=== PATIENT | male | born 1950 | race Caucasian/White ===

== ENCOUNTER 2020-04-12 23:44 | Inpatient (IN) ==
[2020-04-13] MEDS ORDERED: DEXTROSE 50% 25 GM/50 ML VIAL IV PRN (01:48)
[2020-04-13] MEDS ORDERED: GLUCAGON 1 MG VIAL IM PRN (01:48)
[2020-04-13 03:55] LABS: Hematocrit 31.1 VOL% (42.0-52.0); Hemoglobin 9.5 GM/DL (14.0-18.0); Immature Granulocytes % 0.7 %; Immature Granulocytes Absolute 0.05 #; Lymphocytes # 0.3 10*3/uL (1.4-4.0); Lymphocytes % 4.9 % (21.2-54.2); Mean Corpuscular HGB Conc 30.5 GM/DL (32-36); Mean Corpuscular Volume 85.4 FL (87-102); Neutrophils % 88.4 % (38.7-73.9); Platelet Count 94 T/CUMM (130-400); Red Blood Count 3.64 MC/CUMM (3.8-5.5); White Blood Count 6.8 T/CUMM (4-12)
[2020-04-13] MEDS ORDERED: SODIUM CHLORIDE 0.9% 1,000 ML IV SCH (04:00)
[2020-04-13 04:10] LABS: Alanine Aminotransferase < 6 U/L (16-61); Albumin 2.6 G/DL (3.4-5.0); Alkaline Phosphatase 75 U/L (45-117); Aspartate Amino Transferase 5 U/L (0-37); Blood Urea Nitrogen 40 MG/DL (7-18); Calcium 8.4 MG/DL (8.5-10.1); Estimated Glom Filtration Rate 29 ML/MIN; Glucose 157 MG/DL (74-106); Osmolality,Calculated 282.1 MOS/KG (273-304); Total Protein 6.6 G/DL (6.4-8.3)
[2020-04-13] MEDS: PIPERACILLIN/TAZOBACTAM 3,375 MG in SODIUM CHLORIDE 0.9% 100 ML IV SCH ×2 (04:10→15:38)
[2020-04-13 04:21] LABS: Band Neutrophils 1 % (0-10); Lymphocytes 7 % (20-55); Segmented Neutrophils 88 % (50-85); Total Cells Counted 100
[2020-04-13 04:22] LABS: Anisocytosis 1+; Platelet Estimate Decreased
[2020-04-13 04:28] LABS: Ferritin 74.3 ng/ml (26-388)
[2020-04-13] MEDS ORDERED: VANCOMYCIN INJ 2,000 MG in SODIUM CHLORIDE 0.9% 500 ML IV PRN (05:16)
[2020-04-13 06:15] LABS: Apearance,Urine CLOUDY (Clear); Bilirubin,Urine Negative (Negative); Blood, Urine Moderate mg/dL (Negative); Glucose,Urine (UA) Negative (Negative); Ketones,Urine 5 mg/dL (Negative); Nitrite,Urine Negative (Negative); Protein,Urine 100 MG/DL; RBC,Urine 15 /HPF (0-4); Squamous Epithelial Cell,Urine Occasional /HPF (0-10); Urine Color Yellow (Yellow); Urine Specific Gravity 1.014 (1.001-1.035); Urine Urobilinogen < 2.0 EU/DL (0.2-1.0); WBC,Urine 30 /HPF (0-6)
[2020-04-13] MEDS ORDERED: MEPERIDINE 25 MG/1 ML VIAL IV PRN (06:33)
[2020-04-13] MEDS ORDERED: PROMETHAZINE INJ 25 MG in SODIUM CHLORIDE 0.9% 50 ML IV PRN (06:33)
[2020-04-13] MEDS ORDERED: ONDANSETRON 4 MG/2 ML VIAL IV PRN (06:33)
[2020-04-13] MEDS ORDERED: diphenhydrAMINE 50 MG/1 ML VIAL IV PRN (06:33)
[2020-04-13] MEDS ORDERED: ALBUMIN 25% 25 GM/100 ML VIAL IV ONE (07:24)
[2020-04-13] MEDS ORDERED: ALBUTEROL/IPRATROPIUM 3 ML NEB RESP TX PRN (08:41)
[2020-04-13 08:52] LABS: Amorphous Crystals,Urine Moderate /HPF (Few); Apearance,Urine CLOUDY (Clear); Bilirubin,Urine Negative (Negative); Blood, Urine Small mg/dL (Negative); Glucose,Urine (UA) Negative (Negative); Ketones,Urine 5 mg/dL (Negative); Nitrite,Urine Negative (Negative); Protein,Urine 100 MG/DL; Urine Color Amber (Yellow); Urine Specific Gravity 1.017 (1.001-1.035); Urine Urobilinogen < 2.0 EU/DL (0.2-1.0)
[2020-04-13] MEDS ORDERED: VANCOMYCIN INJ 2,500 MG in SODIUM CHLORIDE 0.9% 500 ML IV ONE (09:00)
[2020-04-13] MEDS ORDERED: PANTOPRAZOLE 40 MG TABLET PO SCH (09:00)
[2020-04-13 09:23] LABS: ABG Base Excess -7.6 MMOL/L (-2.5-2.5); ABG Oxygen Saturation 78.3 % (95-100); ABG PCO2 64.8 MM HG (35-48); ABG PO2 58.3 MM HG (80-95); ABG TCO2 21.2 MMOL/L (23-27); Allen Test Positive; Pt O2 Delivery Device Ventilator
[2020-04-13 09:24] LABS: ABG PH 7.144 (7.35-7.45)
[2020-04-13] MEDS: INSULIN LISPRO 100 UNIT/ML SUBCUT SCH ×2 (09:34→17:39)
[2020-04-13] MEDS: ASPIRIN 325 MG TABLET PO SCH (09:35)
[2020-04-13] MEDS: CLOPIDOGREL 75 MG TABLET PO SCH (09:36)
[2020-04-13] MEDS: gemfibroziL 600 MG TABLET PO SCH ×2 (09:36→21:27)
[2020-04-13] MEDS: SODIUM BICARB INJ 100 MEQ in SODIUM CHLORIDE 0.45% 1,000 ML IV SCH (10:14)
[2020-04-13 10:34] LABS: ABG Base Excess -8.2 MMOL/L (-2.5-2.5); ABG HCO3 17.7 MMOL/L (20-26); ABG Oxygen Saturation 95.5 % (95-100); ABG PCO2 64.1 MM HG (35-48); ABG TCO2 20.6 MMOL/L (23-27)
[2020-04-13] MEDS: ACETAMINOPHEN 325 MG TABLET PO PRN (10:34)
[2020-04-13 10:36] LABS: ABG PH 7.137 (7.35-7.45)
[2020-04-13] MEDS ORDERED: SODIUM BICARBONATE 50 MEQ/50 ML VIAL IV ONE ×2 (10:38→10:40)
[2020-04-13] MEDS ORDERED: LIDOCAINE 2% 5 ML VIAL ONE (11:37)
[2020-04-13] MEDS ORDERED: MIDAZOLAM 2 MG/2 ML VIAL ONE (11:37)
[2020-04-13] MEDS ORDERED: CALCIUM CHLORIDE 1,000 MG/10 ML VIAL IV ONE (11:37)
[2020-04-13] MEDS ORDERED: SEVOFLURANE 1 UNIT/15 MINUTE INH ONE (11:37)
[2020-04-13] MEDS ORDERED: fentaNYL 100 MCG/2 ML VIAL ONE (11:38)
[2020-04-13] MEDS ORDERED: SODIUM CHLORIDE 0.9% 250 ML IV ONE (11:38)
[2020-04-13] MEDS ORDERED: EPINEPHrine 1 MG/ML VIAL ONE (11:38)
[2020-04-13] MEDS ORDERED: MIDAZOLAM 10 MG/2 ML VIAL ONE (11:38)
[2020-04-13] MEDS ORDERED: ETOMIDATE 40 MG/20 ML VIAL IV ONE (11:38)
[2020-04-13] MEDS ORDERED: SUCCINYLCHOLINE 200 MG/10 ML VIAL ONE (11:38)
[2020-04-13] MEDS ORDERED: ROCURONIUM 100 MG/10 ML VIAL IV ONE (11:38)
[2020-04-13] MEDS ORDERED: SODIUM CHLORIDE 0.9% 1,000 ML IV ONE ×2 (11:39→13:13)
[2020-04-13] MEDS: MIDAZOLAM 100 MG in SODIUM CHLORIDE 0.9% 80 ML IV PRN (11:57)
[2020-04-13] MEDS ORDERED: NOREPINEPHRINE 4 MG/4 ML VIAL IV ONE (12:35)
[2020-04-13] MEDS: NOREPINEPHRINE 8 MG in SODIUM CHLORIDE 0.9% 242 ML IV PRN ×3 (13:13→22:49)
[2020-04-13 15:19] LABS: ABG Base Excess -5.8 MMOL/L (-2.5-2.5); ABG HCO3 19.7 MMOL/L (20-26); ABG PCO2 51.7 MM HG (35-48); ABG PH 7.234 (7.35-7.45); ABG TCO2 20.6 MMOL/L (23-27)
[2020-04-13] MEDS ORDERED: ALBUMIN 5% 12.5 GM/250 ML VIAL IV ONE (16:52)
[2020-04-13] MEDS ORDERED: ALBUMIN 5% 12.5 GM in PREMIX 1 EACH IV ONE (16:52)
[2020-04-13 17:29] LABS: Alanine Aminotransferase < 9 U/L (16-61); Albumin 2.5 G/DL (3.4-5.0); Alkaline Phosphatase 67 U/L (45-117); Aspartate Amino Transferase 5 U/L (0-37); Blood Urea Nitrogen 42 MG/DL (7-18); Estimated Glom Filtration Rate 25 ML/MIN; Glucose 212 MG/DL (74-106); Osmolality,Calculated 289.8 MOS/KG (273-304); Total Protein 6.1 G/DL (6.4-8.3)
[2020-04-13] MEDS: ENOXAPARIN 30 MG/0.3 ML SYRINGE SUBCUT SCH (17:39)
[2020-04-13 18:15] LABS: ABG Base Excess -4.3 MMOL/L (-2.5-2.5); ABG HCO3 20.9 MMOL/L (20-26); ABG PH 7.319 (7.35-7.45); ABG TCO2 20.2 MMOL/L (23-27)
[2020-04-13] MEDS: PANTOPRAZOLE 40 MG VIAL IV SCH (21:26)
[2020-04-14] MEDS: SODIUM BICARB INJ 100 MEQ in SODIUM CHLORIDE 0.45% 1,000 ML IV SCH ×3 (00:14→23:54)
[2020-04-14] MEDS: NOREPINEPHRINE 8 MG in SODIUM CHLORIDE 0.9% 242 ML IV PRN ×3 (03:22→22:34)
[2020-04-14 04:12] LABS: ABG Base Excess -3.2 MMOL/L (-2.5-2.5); ABG HCO3 21.8 MMOL/L (20-26); ABG Oxygen Saturation 99.3 % (95-100); ABG PH 7.331 (7.35-7.45); ABG TCO2 20.3 MMOL/L (23-27)
[2020-04-14 04:23] LABS: Basophils % 0.2 % (0.0-0.8); Eosinophils % 0.2 % (0.00-10.9); Hematocrit 25.5 VOL% (42.0-52.0); Hemoglobin 7.9 GM/DL (14.0-18.0); Immature Granulocytes % 1.2 %; Immature Granulocytes Absolute 0.07 #; Lymphocytes # 0.6 10*3/uL (1.4-4.0); Lymphocytes % 10.2 % (21.2-54.2); Mean Corpuscular Volume 85.3 FL (87-102); Mean Platelet Volume 11.9 FL (9.6-12.0); Monocytes % 8.1 % (1.7-12.7); Neutrophils % 80.1 % (38.7-73.9); Platelet Count 114 T/CUMM (130-400); Red Blood Count 2.99 MC/CUMM (3.8-5.5); Red Cell Distribution Width 16.8 % (9.3-17.3); White Blood Count 5.9 T/CUMM (4-12)
[2020-04-14] MEDS: PIPERACILLIN/TAZOBACTAM 3,375 MG in SODIUM CHLORIDE 0.9% 100 ML IV SCH ×2 (04:30→14:06)
[2020-04-14 04:40] LABS: Alanine Aminotransferase < 9 U/L (16-61); Albumin 2.4 G/DL (3.4-5.0); Alkaline Phosphatase 58 U/L (45-117); Aspartate Amino Transferase 6 U/L (0-37); Blood Urea Nitrogen 44 MG/DL (7-18); Calcium 7.9 MG/DL (8.5-10.1); Estimated Glom Filtration Rate 23 ML/MIN; Glucose 153 MG/DL (74-106); Osmolality,Calculated 290.5 MOS/KG (273-304); Total Protein 5.8 G/DL (6.4-8.3)
[2020-04-14] MEDS: ENOXAPARIN 30 MG/0.3 ML SYRINGE SUBCUT SCH ×2 (06:20→17:15)
[2020-04-14] MEDS: MIDAZOLAM 100 MG in SODIUM CHLORIDE 0.9% 80 ML IV PRN ×2 (08:45→21:54)
[2020-04-14] MEDS: INSULIN LISPRO 100 UNIT/ML SUBCUT SCH ×4 (08:52→23:09)
[2020-04-14] MEDS: MORPHINE 4 MG/1 ML VIAL IV PRN ×2 (08:56→12:36)
[2020-04-14] MEDS: gemfibroziL 600 MG TABLET PO SCH ×2 (09:57→20:42)
[2020-04-14] MEDS: ASPIRIN 325 MG TABLET PO SCH (09:57)
[2020-04-14] MEDS: CLOPIDOGREL 75 MG TABLET PO SCH (09:57)
[2020-04-14] MEDS: PANTOPRAZOLE 40 MG VIAL IV SCH ×2 (09:57→20:42)
[2020-04-14] MEDS ORDERED: VANCOMYCIN INJ 2,500 MG in SODIUM CHLORIDE 0.9% 500 ML IV ONE (10:00)
[2020-04-14 11:29] LABS: ABG Base Excess -0.9 MMOL/L (-2.5-2.5); ABG HCO3 23.7 MMOL/L (20-26); ABG Oxygen Saturation 98.9 % (95-100); ABG PCO2 38.8 MM HG (35-48); ABG PH 7.396 (7.35-7.45); ABG TCO2 22.5 MMOL/L (23-27)
[2020-04-14] MEDS: fentaNYL INJ 1,250 MCG in SODIUM CHLORIDE 0.9% 225 ML IV PRN ×2 (13:15→22:05)
[2020-04-15 03:42] LABS: ABG Base Excess -3.1 MMOL/L (-2.5-2.5); ABG HCO3 21.8 MMOL/L (20-26); ABG Oxygen Saturation 98.7 % (95-100); ABG PCO2 39.8 MM HG (35-48); ABG PH 7.353 (7.35-7.45); ABG TCO2 20.9 MMOL/L (23-27)
[2020-04-15] MEDS: PIPERACILLIN/TAZOBACTAM 3,375 MG in SODIUM CHLORIDE 0.9% 100 ML IV SCH ×2 (03:45→15:09)
[2020-04-15 03:49] LABS: Basophils % 0.4 % (0.0-0.8); Eosinophils # 0.1 10*3/uL (0.0-0.87); Eosinophils % 1.1 % (0.00-10.9); Hematocrit 24.6 VOL% (42.0-52.0); Hemoglobin 7.3 GM/DL (14.0-18.0); Immature Granulocytes % 0.7 %; Immature Granulocytes Absolute 0.04 #; Lymphocytes # 0.6 10*3/uL (1.4-4.0); Lymphocytes % 11.4 % (21.2-54.2); Mean Corpuscular HGB Conc 29.7 GM/DL (32-36); Mean Corpuscular Volume 87.9 FL (87-102); Mean Platelet Volume 11.2 FL (9.6-12.0); Neutrophils % 78.4 % (38.7-73.9); Platelet Count 137 T/CUMM (130-400); Red Cell Distribution Width 17.2 % (9.3-17.3); White Blood Count 5.6 T/CUMM (4-12)
[2020-04-15 04:10] LABS: Alanine Aminotransferase < 9 U/L (16-61); Alkaline Phosphatase 54 U/L (45-117); Aspartate Amino Transferase 8 U/L (0-37); Blood Urea Nitrogen 43 MG/DL (7-18); Calcium 7.9 MG/DL (8.5-10.1); Estimated Glom Filtration Rate 21 ML/MIN; Glucose 104 MG/DL (74-106); Total Protein 5.5 G/DL (6.4-8.3)
[2020-04-15] MEDS: SODIUM BICARB INJ 100 MEQ in SODIUM CHLORIDE 0.45% 1,000 ML IV SCH ×3 (05:28→22:25)
[2020-04-15] MEDS: INSULIN LISPRO 100 UNIT/ML SUBCUT SCH ×4 (05:30→23:27)
[2020-04-15] MEDS: ENOXAPARIN 30 MG/0.3 ML SYRINGE SUBCUT SCH (05:41)
[2020-04-15] MEDS: fentaNYL INJ 1,250 MCG in SODIUM CHLORIDE 0.9% 225 ML IV PRN ×2 (07:11→16:00)
[2020-04-15] MEDS: NOREPINEPHRINE 8 MG in SODIUM CHLORIDE 0.9% 242 ML IV PRN (07:58)
[2020-04-15] MEDS: gemfibroziL 600 MG TABLET PO SCH ×4 (08:48→21:12)
[2020-04-15] MEDS: PANTOPRAZOLE 40 MG VIAL IV SCH ×3 (08:48→21:12)
[2020-04-15] MEDS: CLOPIDOGREL 75 MG TABLET PO SCH ×3 (08:48→13:32)
[2020-04-15] MEDS: ASPIRIN 325 MG TABLET PO SCH ×3 (08:48→13:34)
[2020-04-15] MEDS ORDERED: VANCOMYCIN INJ 2,000 MG in SODIUM CHLORIDE 0.9% 500 ML IV ONE (12:30)
[2020-04-15] MEDS: MIDAZOLAM 100 MG in SODIUM CHLORIDE 0.9% 80 ML IV PRN (17:03)
[2020-04-16] MEDS: NOREPINEPHRINE 8 MG in SODIUM CHLORIDE 0.9% 242 ML IV PRN
[2020-04-16] MEDS: PIPERACILLIN/TAZOBACTAM 3,375 MG in SODIUM CHLORIDE 0.9% 100 ML IV SCH ×3 (02:29→16:32)
[2020-04-16 03:41] LABS: ABG Base Excess 1.2 MMOL/L (-2.5-2.5); ABG HCO3 25.4 MMOL/L (20-26); ABG Oxygen Saturation 97.7 % (95-100); ABG PCO2 46.1 MM HG (35-48); ABG PH 7.375 (7.35-7.45); ABG TCO2 23.2 MMOL/L (23-27)
[2020-04-16 03:45] LABS: Basophils % 0.2 % (0.0-0.8); Eosinophils # 0.1 10*3/uL (0.0-0.87); Eosinophils % 2.5 % (0.00-10.9); Hemoglobin 6.7 GM/DL (14.0-18.0); Immature Granulocytes Absolute 0.04 #; Lymphocytes # 0.5 10*3/uL (1.4-4.0); Mean Corpuscular HGB Conc 30.5 GM/DL (32-36); Mean Corpuscular Volume 86.6 FL (87-102); Mean Platelet Volume 11.3 FL (9.6-12.0); Monocytes % 7.4 % (1.7-12.7); Neutrophils % 75.9 % (38.7-73.9); Platelet Count 115 T/CUMM (130-400); Red Blood Count 2.54 MC/CUMM (3.8-5.5); Red Cell Distribution Width 17.3 % (9.3-17.3); White Blood Count 4.1 T/CUMM (4-12)
[2020-04-16 04:07] LABS: Alanine Aminotransferase < 9 U/L (16-61); Albumin 1.6 G/DL (3.4-5.0); Alkaline Phosphatase 53 U/L (45-117); Aspartate Amino Transferase 10 U/L (0-37); Blood Urea Nitrogen 41 MG/DL (7-18); Calcium 7.9 MG/DL (8.5-10.1); Estimated Glom Filtration Rate 22 ML/MIN; Glucose 149 MG/DL (74-106); Osmolality,Calculated 298.8 MOS/KG (273-304); Total Protein 5.4 G/DL (6.4-8.3)
[2020-04-16] MEDS: INSULIN LISPRO 100 UNIT/ML SUBCUT SCH ×3 (06:06→18:31)
[2020-04-16] MEDS: ENOXAPARIN 30 MG/0.3 ML SYRINGE SUBCUT SCH (06:07)
[2020-04-16] MEDS: CLOPIDOGREL 75 MG TABLET PO SCH (09:04)
[2020-04-16] MEDS: gemfibroziL 600 MG TABLET PO SCH ×2 (09:04→21:29)
[2020-04-16] MEDS: ASPIRIN 325 MG TABLET PO SCH (09:04)
[2020-04-16] MEDS: PANTOPRAZOLE 40 MG VIAL IV SCH ×2 (09:04→21:29)
[2020-04-16] MEDS: SODIUM BICARB INJ 100 MEQ in SODIUM CHLORIDE 0.45% 1,000 ML IV SCH (09:16)
[2020-04-16] MEDS: SODIUM CHLORIDE 0.45% 1,000 ML IV SCH (12:21)
[2020-04-16] MEDS: MIDAZOLAM 100 MG in SODIUM CHLORIDE 0.9% 80 ML IV PRN (14:03)
[2020-04-16] MEDS: fentaNYL INJ 1,250 MCG in SODIUM CHLORIDE 0.9% 225 ML IV PRN (19:56)
[2020-04-17] MEDS: INSULIN LISPRO 100 UNIT/ML SUBCUT SCH ×5 (01:35→23:44)
[2020-04-17] MEDS: PIPERACILLIN/TAZOBACTAM 3,375 MG in SODIUM CHLORIDE 0.9% 100 ML IV SCH ×2 (02:52→15:36)
[2020-04-17 03:25] LABS: ABG Base Excess 4.5 MMOL/L (-2.5-2.5); ABG HCO3 28.5 MMOL/L (20-26); ABG Oxygen Saturation 98.8 % (95-100); ABG PCO2 44.5 MM HG (35-48); ABG PH 7.428 (7.35-7.45); ABG TCO2 27.1 MMOL/L (23-27)
[2020-04-17 03:29] LABS: Basophils % 0.6 % (0.0-0.8); Eosinophils # 0.1 10*3/uL (0.0-0.87); Eosinophils % 3.2 % (0.00-10.9); Hematocrit 21.2 VOL% (42.0-52.0); Immature Granulocytes % 1.4 %; Immature Granulocytes Absolute 0.05 #; Lymphocytes # 0.5 10*3/uL (1.4-4.0); Lymphocytes % 14.9 % (21.2-54.2); Mean Corpuscular HGB Conc 30.2 GM/DL (32-36); Mean Corpuscular Volume 87.2 FL (87-102); Monocytes % 8.3 % (1.7-12.7); Neutrophils % 71.6 % (38.7-73.9); Platelet Count 117 T/CUMM (130-400); Red Blood Count 2.43 MC/CUMM (3.8-5.5); Red Cell Distribution Width 17.2 % (9.3-17.3); White Blood Count 3.5 T/CUMM (4-12)
[2020-04-17 03:32] LABS: Hemoglobin 6.4 GM/DL (14.0-18.0)
[2020-04-17 03:37] LABS: Calcium 7.8 MG/DL (8.5-10.1); Osmolality,Calculated 304.6 MOS/KG (273-304)
[2020-04-17] MEDS ORDERED: SODIUM CHLORIDE 0.9% 1,000 ML IV PRN (03:52)
[2020-04-17 04:28] LABS: INR 1.1; PT Patient Result 11.6 SECS (9.8-11.9); Partial Thromboplastin Time 31.9 SECS (23.9-33.8)
[2020-04-17] MEDS: ENOXAPARIN 30 MG/0.3 ML SYRINGE SUBCUT SCH (05:43)
[2020-04-17] MEDS: fentaNYL INJ 1,250 MCG in SODIUM CHLORIDE 0.9% 225 ML IV PRN (07:46)
[2020-04-17] MEDS: PANTOPRAZOLE 40 MG VIAL IV SCH ×2 (09:32→21:58)
[2020-04-17] MEDS: ASPIRIN 325 MG TABLET PO SCH (09:32)
[2020-04-17] MEDS: CLOPIDOGREL 75 MG TABLET PO SCH (09:33)
[2020-04-17] MEDS: gemfibroziL 600 MG TABLET PO SCH ×2 (09:33→21:58)
[2020-04-17] MEDS ORDERED: NOREPINEPHRINE 8 MG in DEXTROSE 5% 242 ML IV PRN (16:00)
[2020-04-17] MEDS: fentaNYL INJ 1,250 MCG in DEXTROSE 5% 225 ML IV PRN (18:24)
[2020-04-17] MEDS: MIDAZOLAM 100 MG in DEXTROSE 5% 80 ML IV PRN (18:33)
[2020-04-18] MEDS: PIPERACILLIN/TAZOBACTAM 3,375 MG in DEXTROSE 5% 100 ML IV SCH ×2 (03:26→15:23)
[2020-04-18] MEDS: fentaNYL INJ 1,250 MCG in DEXTROSE 5% 225 ML IV PRN ×2 (03:27→12:40)
[2020-04-18 05:08] LABS: ABG Base Excess 3.5 MMOL/L (-2.5-2.5); ABG HCO3 27.6 MMOL/L (20-26); ABG Oxygen Saturation 98.6 % (95-100); ABG PCO2 44.5 MM HG (35-48); ABG PH 7.414 (7.35-7.45); ABG TCO2 26.6 MMOL/L (23-27)
[2020-04-18 05:17] LABS: Basophils % 0.4 % (0.0-0.8); Eosinophils # 0.2 10*3/uL (0.0-0.87); Eosinophils % 3.5 % (0.00-10.9); Hematocrit 25.6 VOL% (42.0-52.0); Hemoglobin 7.9 GM/DL (14.0-18.0); Immature Granulocytes % 3.1 %; Immature Granulocytes Absolute 0.14 #; Lymphocytes # 0.7 10*3/uL (1.4-4.0); Lymphocytes % 15.3 % (21.2-54.2); Mean Corpuscular HGB Conc 30.9 GM/DL (32-36); Mean Corpuscular Volume 87.1 FL (87-102); Mean Platelet Volume 10.4 FL (9.6-12.0); Monocytes % 8.1 % (1.7-12.7); Neutrophils % 69.6 % (38.7-73.9); Platelet Count 103 T/CUMM (130-400); Red Blood Count 2.94 MC/CUMM (3.8-5.5); Red Cell Distribution Width 16.6 % (9.3-17.3); White Blood Count 4.6 T/CUMM (4-12)
[2020-04-18 05:37] LABS: Calcium 8.1 MG/DL (8.5-10.1); Osmolality,Calculated 303.7 MOS/KG (273-304)
[2020-04-18] MEDS ORDERED: VANCOMYCIN INJ 2,000 MG in SODIUM CHLORIDE 0.9% 500 ML IV ONE (06:00)
[2020-04-18] MEDS ORDERED: VANCOMYCIN IV ONE (06:00)
[2020-04-18] MEDS ORDERED: DEXTROSE 5% IV ONE (06:00)
[2020-04-18] MEDS: ENOXAPARIN 30 MG/0.3 ML SYRINGE SUBCUT SCH (06:25)
[2020-04-18] MEDS: INSULIN LISPRO 100 UNIT/ML SUBCUT SCH ×3 (07:10→18:25)
[2020-04-18] MEDS: SODIUM CHLORIDE 0.45% 1,000 ML IV SCH ×2 (09:54→09:59)
[2020-04-18] MEDS: ASPIRIN 325 MG TABLET PO SCH (09:55)
[2020-04-18] MEDS: PANTOPRAZOLE 40 MG VIAL IV SCH ×2 (09:55→23:09)
[2020-04-18] MEDS: CLOPIDOGREL 75 MG TABLET PO SCH (09:55)
[2020-04-18] MEDS: gemfibroziL 600 MG TABLET PO SCH ×2 (09:55→23:09)
[2020-04-18] MEDS: MIDAZOLAM 100 MG in DEXTROSE 5% 80 ML IV PRN (12:39)
[2020-04-19] MEDS: INSULIN LISPRO 100 UNIT/ML SUBCUT SCH ×4 (01:56→17:54)
[2020-04-19] MEDS: PIPERACILLIN/TAZOBACTAM 3,375 MG in DEXTROSE 5% 100 ML IV SCH ×2 (02:01→14:25)
[2020-04-19 05:13] LABS: ABG Base Excess 3.1 MMOL/L (-2.5-2.5); ABG HCO3 27.2 MMOL/L (20-26); ABG Oxygen Saturation 97.8 % (95-100); ABG PCO2 43.2 MM HG (35-48); ABG PH 7.418 (7.35-7.45); ABG PO2 95.1 MM HG (80-95)
[2020-04-19 05:33] LABS: Basophils % 0.4 % (0.0-0.8); Eosinophils # 0.2 10*3/uL (0.0-0.87); Eosinophils % 4.5 % (0.00-10.9); Hematocrit 26.4 VOL% (42.0-52.0); Hemoglobin 7.9 GM/DL (14.0-18.0); Immature Granulocytes % 4.5 %; Immature Granulocytes Absolute 0.22 #; Lymphocytes # 0.7 10*3/uL (1.4-4.0); Lymphocytes % 13.8 % (21.2-54.2); Mean Corpuscular HGB Conc 29.9 GM/DL (32-36); Mean Corpuscular Volume 89.8 FL (87-102); Mean Platelet Volume 10.5 FL (9.6-12.0); Neutrophils % 70.8 % (38.7-73.9); Platelet Count 109 T/CUMM (130-400); Red Blood Count 2.94 MC/CUMM (3.8-5.5); Red Cell Distribution Width 16.7 % (9.3-17.3); White Blood Count 4.9 T/CUMM (4-12)
[2020-04-19] MEDS: ENOXAPARIN 30 MG/0.3 ML SYRINGE SUBCUT SCH (05:56)
[2020-04-19 05:58] LABS: Osmolality,Calculated 301.7 MOS/KG (273-304)
[2020-04-19] MEDS: fentaNYL INJ 1,250 MCG in DEXTROSE 5% 225 ML IV PRN ×2 (06:05→20:59)
[2020-04-19] MEDS: MIDAZOLAM 100 MG in DEXTROSE 5% 80 ML IV PRN ×2 (06:06→23:16)
[2020-04-19] MEDS: ASPIRIN 325 MG TABLET PO SCH (08:15)
[2020-04-19] MEDS: gemfibroziL 600 MG TABLET PO SCH ×2 (08:15→20:54)
[2020-04-19] MEDS: PANTOPRAZOLE 40 MG VIAL IV SCH ×2 (08:15→20:54)
[2020-04-19] MEDS: CLOPIDOGREL 75 MG TABLET PO SCH (08:15)
[2020-04-19] MEDS: SODIUM CHLORIDE 0.45% 1,000 ML IV SCH (09:00)
[2020-04-19] MEDS: ACETAMINOPHEN 325 MG TABLET PO PRN (20:54)
[2020-04-20] MEDS: INSULIN LISPRO 100 UNIT/ML SUBCUT SCH ×4 (02:28→17:40)
[2020-04-20] MEDS: PIPERACILLIN/TAZOBACTAM 3,375 MG in DEXTROSE 5% 100 ML IV SCH ×2 (04:08→14:45)
[2020-04-20 04:49] LABS: Basophils % 0.4 % (0.0-0.8); Eosinophils # 0.2 10*3/uL (0.0-0.87); Hematocrit 26.2 VOL% (42.0-52.0); Hemoglobin 7.7 GM/DL (14.0-18.0); Immature Granulocytes % 4.2 %; Immature Granulocytes Absolute 0.21 #; Lymphocytes # 0.8 10*3/uL (1.4-4.0); Lymphocytes % 15.5 % (21.2-54.2); Mean Corpuscular HGB Conc 29.4 GM/DL (32-36); Mean Platelet Volume 10.7 FL (9.6-12.0); Monocytes % 5.8 % (1.7-12.7); Neutrophils % 70.1 % (38.7-73.9); Platelet Count 116 T/CUMM (130-400); Red Blood Count 2.91 MC/CUMM (3.8-5.5); Red Cell Distribution Width 16.6 % (9.3-17.3)
[2020-04-20 05:12] LABS: ABG Base Excess 2.8 MMOL/L (-2.5-2.5); ABG HCO3 26.9 MMOL/L (20-26); ABG Oxygen Saturation 97.6 % (95-100); ABG PCO2 45.8 MM HG (35-48); ABG PH 7.397 (7.35-7.45); ABG PO2 96.5 MM HG (80-95); ABG TCO2 25.9 MMOL/L (23-27)
[2020-04-20 05:14] LABS: Calcium 7.9 MG/DL (8.5-10.1); Osmolality,Calculated 299.7 MOS/KG (273-304)
[2020-04-20] MEDS: SODIUM CHLORIDE 0.45% 1,000 ML IV SCH (06:35)
[2020-04-20] MEDS: ENOXAPARIN 30 MG/0.3 ML SYRINGE SUBCUT SCH (06:35)
[2020-04-20] MEDS: gemfibroziL 600 MG TABLET PO SCH ×2 (08:05→20:42)
[2020-04-20] MEDS: ASPIRIN 325 MG TABLET PO SCH (08:05)
[2020-04-20] MEDS: PANTOPRAZOLE 40 MG VIAL IV SCH ×2 (08:05→20:42)
[2020-04-20] MEDS: fentaNYL INJ 1,250 MCG in DEXTROSE 5% 225 ML IV PRN ×2 (08:05→23:00)
[2020-04-20] MEDS: CLOPIDOGREL 75 MG TABLET PO SCH (08:05)
[2020-04-20] MEDS: MIDAZOLAM 100 MG in DEXTROSE 5% 80 ML IV PRN ×2 (08:10→23:00)
[2020-04-20] MEDS: INSULIN GLARGINE 100 UNIT/ML SUBCUT SCH (11:20)
[2020-04-21] MEDS: INSULIN LISPRO 100 UNIT/ML SUBCUT SCH ×4 (00:40→17:21)
[2020-04-21] MEDS: PIPERACILLIN/TAZOBACTAM 3,375 MG in DEXTROSE 5% 100 ML IV SCH ×2 (03:40→15:49)
[2020-04-21 04:25] LABS: ABG HCO3 26.2 MMOL/L (20-26); ABG Oxygen Saturation 98.5 % (95-100); ABG PCO2 44.9 MM HG (35-48); ABG PH 7.391 (7.35-7.45); ABG TCO2 25.5 MMOL/L (23-27)
[2020-04-21 04:43] LABS: Basophils % 0.4 % (0.0-0.8); Eosinophils # 0.2 10*3/uL (0.0-0.87); Eosinophils % 4.3 % (0.00-10.9); Hematocrit 25.2 VOL% (42.0-52.0); Hemoglobin 7.4 GM/DL (14.0-18.0); Immature Granulocytes % 3.1 %; Immature Granulocytes Absolute 0.17 #; Lymphocytes # 0.8 10*3/uL (1.4-4.0); Mean Corpuscular HGB Conc 29.4 GM/DL (32-36); Monocytes % 4.6 % (1.7-12.7); Neutrophils % 73.6 % (38.7-73.9); Platelet Count 129 T/CUMM (130-400); Red Cell Distribution Width 16.5 % (9.3-17.3); White Blood Count 5.4 T/CUMM (4-12)
[2020-04-21 04:54] LABS: Calcium 8.1 MG/DL (8.5-10.1); Osmolality,Calculated 297.8 MOS/KG (273-304)
[2020-04-21] MEDS: ENOXAPARIN 30 MG/0.3 ML SYRINGE SUBCUT SCH (06:35)
[2020-04-21] MEDS: SODIUM CHLORIDE 0.45% 1,000 ML IV SCH (06:39)
[2020-04-21] MEDS: fentaNYL INJ 1,250 MCG in DEXTROSE 5% 225 ML IV PRN ×2 (06:53→15:44)
[2020-04-21] MEDS ORDERED: VANCOMYCIN INJ 2,000 MG in SODIUM CHLORIDE 0.9% 500 ML IV ONE (09:00)
[2020-04-21] MEDS: ASPIRIN 325 MG TABLET PO SCH (09:26)
[2020-04-21] MEDS: INSULIN GLARGINE 100 UNIT/ML SUBCUT SCH (09:27)
[2020-04-21] MEDS: gemfibroziL 600 MG TABLET PO SCH ×2 (09:27→21:50)
[2020-04-21] MEDS: CLOPIDOGREL 75 MG TABLET PO SCH (09:27)
[2020-04-21] MEDS: PANTOPRAZOLE 40 MG VIAL IV SCH ×2 (09:28→21:50)
[2020-04-21] MEDS: MIDAZOLAM 100 MG in DEXTROSE 5% 80 ML IV PRN (12:44)
[2020-04-21] MEDS ORDERED: fentaNYL INJ 2,500 MCG in DEXTROSE 5% 450 ML IV PRN (22:00)
[2020-04-22] MEDS: INSULIN LISPRO 100 UNIT/ML SUBCUT SCH ×4 (01:44→18:03)
[2020-04-22] MEDS: PIPERACILLIN/TAZOBACTAM 3,375 MG in DEXTROSE 5% 100 ML IV SCH ×2 (03:45→14:57)
[2020-04-22 04:41] LABS: ABG Base Excess 1.4 MMOL/L (-2.5-2.5); ABG HCO3 25.7 MMOL/L (20-26); ABG Oxygen Saturation 98.4 % (95-100); ABG PCO2 45.8 MM HG (35-48); ABG PH 7.378 (7.35-7.45); ABG TCO2 24.4 MMOL/L (23-27)
[2020-04-22 04:53] LABS: Basophils % 0.3 % (0.0-0.8); Eosinophils # 0.3 10*3/uL (0.0-0.87); Eosinophils % 4.2 % (0.00-10.9); Hematocrit 24.5 VOL% (42.0-52.0); Hemoglobin 7.4 GM/DL (14.0-18.0); Immature Granulocytes % 1.9 %; Immature Granulocytes Absolute 0.12 #; Lymphocytes # 0.8 10*3/uL (1.4-4.0); Lymphocytes % 13.2 % (21.2-54.2); Mean Corpuscular HGB Conc 30.2 GM/DL (32-36); Mean Corpuscular Volume 88.4 FL (87-102); Mean Platelet Volume 11.5 FL (9.6-12.0); Monocytes % 4.2 % (1.7-12.7); Neutrophils % 76.2 % (38.7-73.9); Red Blood Count 2.77 MC/CUMM (3.8-5.5); Red Cell Distribution Width 16.5 % (9.3-17.3); White Blood Count 6.2 T/CUMM (4-12)
[2020-04-22 04:54] LABS: Platelet Count 141 T/CUMM (130-400)
[2020-04-22 05:25] LABS: Hypochromasia 1+; Microcytosis 1+
[2020-04-22 05:26] LABS: Anisocytosis 1+; Platelet Estimate Adequate
[2020-04-22 06:23] LABS: Calcium 8.1 MG/DL (8.5-10.1); Osmolality,Calculated 295.8 MOS/KG (273-304)
[2020-04-22] MEDS: ENOXAPARIN 30 MG/0.3 ML SYRINGE SUBCUT SCH (06:35)
[2020-04-22] MEDS: gemfibroziL 600 MG TABLET PO SCH ×2 (08:55→21:20)
[2020-04-22] MEDS: CLOPIDOGREL 75 MG TABLET PO SCH (08:55)
[2020-04-22] MEDS: ASPIRIN 325 MG TABLET PO SCH (08:56)
[2020-04-22] MEDS: SODIUM CHLORIDE 0.45% 1,000 ML IV SCH (08:57)
[2020-04-22] MEDS: PANTOPRAZOLE 40 MG VIAL IV SCH ×2 (09:09→22:32)
[2020-04-22] MEDS: INSULIN GLARGINE 100 UNIT/ML SUBCUT SCH (09:21)
[2020-04-23] MEDS: INSULIN LISPRO 100 UNIT/ML SUBCUT SCH ×5 (00:17→23:56)
[2020-04-23 04:10] LABS: ABG Base Excess 0.6 MMOL/L (-2.5-2.5); ABG Oxygen Saturation 96.2 % (95-100); ABG PCO2 39.3 MM HG (35-48); ABG PH 7.422 (7.35-7.45); ABG PO2 84.9 MM HG (80-95); ABG TCO2 26.2 MMOL/L (23-27)
[2020-04-23 04:47] LABS: Basophils % 0.4 % (0.0-0.8); Eosinophils # 0.2 10*3/uL (0.0-0.87); Hematocrit 24.9 VOL% (42.0-52.0); Hemoglobin 7.6 GM/DL (14.0-18.0); Immature Granulocytes % 1.1 %; Immature Granulocytes Absolute 0.08 #; Lymphocytes # 0.6 10*3/uL (1.4-4.0); Mean Corpuscular HGB Conc 30.5 GM/DL (32-36); Mean Corpuscular Volume 88.3 FL (87-102); Monocytes % 4.2 % (1.7-12.7); Neutrophils % 82.3 % (38.7-73.9); Platelet Count 185 T/CUMM (130-400); Red Blood Count 2.82 MC/CUMM (3.8-5.5); White Blood Count 7.1 T/CUMM (4-12)
[2020-04-23 04:56] LABS: Calcium 8.1 MG/DL (8.5-10.1)
[2020-04-23] MEDS: ENOXAPARIN 30 MG/0.3 ML SYRINGE SUBCUT SCH (06:39)
[2020-04-23] MEDS: PIPERACILLIN/TAZOBACTAM 3,375 MG in DEXTROSE 5% 100 ML IV SCH ×2 (07:43→15:28)
[2020-04-23] MEDS ORDERED: MAGNESIUM SULF RIDER 2 GM in PREMIX 1 EACH IV PRN (09:42)
[2020-04-23] MEDS ORDERED: MAGNESIUM SULF RIDER 4 GM in PREMIX 1 EACH IV PRN (09:42)
[2020-04-23] MEDS: PANTOPRAZOLE 40 MG VIAL IV SCH ×2 (10:04→20:20)
[2020-04-23] MEDS: CLOPIDOGREL 75 MG TABLET PO SCH (10:06)
[2020-04-23] MEDS: ASPIRIN 325 MG TABLET PO SCH (10:06)
[2020-04-23] MEDS: INSULIN GLARGINE 100 UNIT/ML SUBCUT SCH (10:06)
[2020-04-23] MEDS: gemfibroziL 600 MG TABLET PO SCH ×2 (10:06→20:24)
[2020-04-23] MEDS: SODIUM CHLORIDE 0.45% 1,000 ML IV SCH (10:30)
[2020-04-23] MEDS: NON-FORMULARY MEDICATION (Pravastatin 80 MG) PO SCH (20:24)
[2020-04-24] MEDS: NON-FORMULARY MEDICATION (Pravastatin 80 MG) PO SCH ×2 (00:02→21:38)
[2020-04-24] MEDS: PIPERACILLIN/TAZOBACTAM 3,375 MG in DEXTROSE 5% 100 ML IV SCH ×2 (03:03→15:30)
[2020-04-24 04:35] LABS: Basophils % 0.5 % (0.0-0.8); Eosinophils # 0.2 10*3/uL (0.0-0.87); Eosinophils % 2.8 % (0.00-10.9); Hematocrit 25.1 VOL% (42.0-52.0); Hemoglobin 7.8 GM/DL (14.0-18.0); Immature Granulocytes % 1.1 %; Immature Granulocytes Absolute 0.07 #; Lymphocytes # 0.7 10*3/uL (1.4-4.0); Lymphocytes % 10.2 % (21.2-54.2); Mean Corpuscular HGB Conc 31.1 GM/DL (32-36); Mean Corpuscular Volume 85.7 FL (87-102); Mean Platelet Volume 11.3 FL (9.6-12.0); Monocytes % 4.1 % (1.7-12.7); Neutrophils % 81.3 % (38.7-73.9); Platelet Count 201 T/CUMM (130-400); Red Blood Count 2.93 MC/CUMM (3.8-5.5); Red Cell Distribution Width 15.9 % (9.3-17.3); White Blood Count 6.4 T/CUMM (4-12)
[2020-04-24 05:19] LABS: Calcium 8.1 MG/DL (8.5-10.1); Osmolality,Calculated 288.1 MOS/KG (273-304)
[2020-04-24] MEDS: INSULIN LISPRO 100 UNIT/ML SUBCUT SCH ×4 (05:52→20:45)
[2020-04-24] MEDS: SODIUM CHLORIDE 0.45% 1,000 ML IV SCH ×2 (05:53→08:18)
[2020-04-24] MEDS: ENOXAPARIN 30 MG/0.3 ML SYRINGE SUBCUT SCH (05:53)
[2020-04-24] MEDS ORDERED: VANCOMYCIN INJ 2,000 MG in SODIUM CHLORIDE 0.9% 500 ML IV SCH (09:00)
[2020-04-24] MEDS ORDERED: hydrALAZINE 20 MG/1 ML VIAL IV PRN (09:07)
[2020-04-24] MEDS: CLOPIDOGREL 75 MG TABLET PO SCH (09:18)
[2020-04-24] MEDS: gemfibroziL 600 MG TABLET PO SCH ×2 (09:18→21:00)
[2020-04-24] MEDS: amLODIPine 5 MG TABLET PO SCH (09:19)
[2020-04-24] MEDS: ASPIRIN 325 MG TABLET PO SCH (09:19)
[2020-04-24] MEDS: PANTOPRAZOLE 40 MG VIAL IV SCH (09:19)
[2020-04-24] MEDS: INSULIN GLARGINE 100 UNIT/ML SUBCUT SCH (09:25)
[2020-04-24] MEDS ORDERED: POTASSIUM CHLORIDE 20 MEQ TABLET PO ONE (09:30)
[2020-04-24] MEDS: PANTOPRAZOLE 40 MG TABLET PO SCH (21:00)
[2020-04-25] MEDS: carvediloL 25 MG TABLET PO SCH ×3 (01:12→17:18)
[2020-04-25] MEDS: PIPERACILLIN/TAZOBACTAM 3,375 MG in DEXTROSE 5% 100 ML IV SCH ×2 (03:27→15:35)
[2020-04-25] MEDS: ENOXAPARIN 30 MG/0.3 ML SYRINGE SUBCUT SCH (05:57)
[2020-04-25 06:24] LABS: Basophils % 0.5 % (0.0-0.8); Eosinophils # 0.1 10*3/uL (0.0-0.87); Eosinophils % 2.5 % (0.00-10.9); Hematocrit 24.7 VOL% (42.0-52.0); Hemoglobin 7.5 GM/DL (14.0-18.0); Immature Granulocytes % 1.1 %; Immature Granulocytes Absolute 0.06 #; Lymphocytes # 0.7 10*3/uL (1.4-4.0); Lymphocytes % 11.6 % (21.2-54.2); Mean Corpuscular HGB Conc 30.4 GM/DL (32-36); Mean Corpuscular Volume 87.6 FL (87-102); Mean Platelet Volume 10.4 FL (9.6-12.0); Monocytes % 4.3 % (1.7-12.7); Platelet Count 227 T/CUMM (130-400); Red Blood Count 2.82 MC/CUMM (3.8-5.5); Red Cell Distribution Width 16.1 % (9.3-17.3); White Blood Count 5.6 T/CUMM (4-12)
[2020-04-25 06:43] LABS: Albumin 1.9 G/DL (3.4-5.0); Bilirubin,Total 0.8 MG/DL (0.2-1.0); Calcium 8.2 MG/DL (8.5-10.1); Osmolality,Calculated 285.1 MOS/KG (273-304); Total Protein 5.7 G/DL (6.4-8.3)
[2020-04-25] MEDS: SODIUM CHLORIDE 0.45% 1,000 ML IV SCH (07:02)
[2020-04-25] MEDS: INSULIN LISPRO 100 UNIT/ML SUBCUT SCH ×4 (07:53→20:40)
[2020-04-25] MEDS: ASPIRIN 325 MG TABLET PO SCH (10:29)
[2020-04-25] MEDS: INSULIN GLARGINE 100 UNIT/ML SUBCUT SCH (10:31)
[2020-04-25] MEDS: amLODIPine 5 MG TABLET PO SCH (10:32)
[2020-04-25] MEDS: CLOPIDOGREL 75 MG TABLET PO SCH (10:32)
[2020-04-25] MEDS: gemfibroziL 600 MG TABLET PO SCH ×2 (10:32→20:37)
[2020-04-25] MEDS: PANTOPRAZOLE 40 MG TABLET PO SCH ×2 (10:33→20:37)
[2020-04-25] MEDS: FUROSEMIDE 40 MG/4 ML VIAL IV SCH (10:40)
[2020-04-25] MEDS: LOPERAMIDE 2 MG CAPSULE PO PRN ×2 (10:40→20:37)
[2020-04-25] MEDS: POTASSIUM CHLORIDE 20 MEQ TABLET PO SCH (13:07)
[2020-04-25] MEDS: NON-FORMULARY MEDICATION (Pravastatin 80 MG) PO SCH (20:39)
[2020-04-26] MEDS ORDERED: AMIODARONE 450 MG/9 ML VIAL IV ONE (00:54)
[2020-04-26 01:35] LABS: ABG HCO3 18.6 MMOL/L (20-26); ABG PCO2 37.7 MM HG (35-48); ABG PH 7.307 (7.35-7.45); ABG PO2 68.9 MM HG (80-95); ABG TCO2 16.4 MMOL/L (23-27)
[2020-04-26 01:58] LABS: Basophils # 0.1 10*3/uL (0.0-0.2); Basophils % 0.6 % (0.0-0.8); Eosinophils # 0.4 10*3/uL (0.0-0.87); Eosinophils % 2.1 % (0.00-10.9); Hematocrit 30.2 VOL% (42.0-52.0); Immature Granulocytes % 2.7 %; Immature Granulocytes Absolute 0.47 #; Lymphocytes # 2.4 10*3/uL (1.4-4.0); Mean Corpuscular HGB Conc 30.8 GM/DL (32-36); Mean Corpuscular Volume 88.3 FL (87-102); Monocytes % 3.6 % (1.7-12.7); NRBC # 0.05 10*3/uL; Platelet Count 305 T/CUMM (130-400); Red Blood Count 3.42 MC/CUMM (3.8-5.5); Red Cell Distribution Width 16.7 % (9.3-17.3); White Blood Count 17.4 T/CUMM (4-12)
[2020-04-26 02:07] LABS: Hemoglobin 9.3 GM/DL (14.0-18.0)
[2020-04-26 02:14] LABS: Calcium 8.9 MG/DL (8.5-10.1); Osmolality,Calculated 284.3 MOS/KG (273-304)
[2020-04-26 02:23] LABS: Troponin I 0.016 NG/ML (0.00-0.045)
[2020-04-26] MEDS: PIPERACILLIN/TAZOBACTAM 3,375 MG in DEXTROSE 5% 100 ML IV SCH ×3 (02:52→20:27)
[2020-04-26] MEDS ORDERED: AMIODARONE INJ 450 MG in DEXTROSE 5% 241 ML IV SCH (03:00)
[2020-04-26 04:00] LABS: ABG Base Excess -0.3 MMOL/L (-2.5-2.5); ABG HCO3 24.2 MMOL/L (20-26); ABG PCO2 34.3 MM HG (35-48); ABG PH 7.442 (7.35-7.45); ABG TCO2 21.4 MMOL/L (23-27)
[2020-04-26] MEDS: ENOXAPARIN 30 MG/0.3 ML SYRINGE SUBCUT SCH (05:52)
[2020-04-26 06:19] LABS: Basophils % 0.3 % (0.0-0.8); Eosinophils # 0.1 10*3/uL (0.0-0.87); Hematocrit 25.3 VOL% (42.0-52.0); Hemoglobin 7.7 GM/DL (14.0-18.0); Immature Granulocytes % 1.3 %; Immature Granulocytes Absolute 0.13 #; Lymphocytes # 0.7 10*3/uL (1.4-4.0); Lymphocytes % 6.8 % (21.2-54.2); Mean Corpuscular HGB Conc 30.4 GM/DL (32-36); Mean Corpuscular Volume 88.5 FL (87-102); Mean Platelet Volume 10.8 FL (9.6-12.0); Monocytes % 4.9 % (1.7-12.7); Neutrophils % 85.7 % (38.7-73.9); Platelet Count 232 T/CUMM (130-400); Red Blood Count 2.86 MC/CUMM (3.8-5.5); Red Cell Distribution Width 16.5 % (9.3-17.3); White Blood Count 9.7 T/CUMM (4-12)
[2020-04-26 06:38] LABS: Calcium 8.2 MG/DL (8.5-10.1); Osmolality,Calculated 287.1 MOS/KG (273-304)
[2020-04-26] MEDS: INSULIN LISPRO 100 UNIT/ML SUBCUT SCH ×3 (07:30→18:18)
[2020-04-26] MEDS: carvediloL 25 MG TABLET PO SCH (08:00)
[2020-04-26] MEDS: AMIODARONE INJ 450 MG in DEXTROSE 5% 241 ML IV SCH ×2 (09:00→23:47)
[2020-04-26] MEDS: INSULIN GLARGINE 100 UNIT/ML SUBCUT SCH (09:09)
[2020-04-26] MEDS: amLODIPine 5 MG TABLET PO SCH (09:09)
[2020-04-26] MEDS: POTASSIUM CHLORIDE 20 MEQ/15 ML UDCUP PER TUBE PRN ×2 (09:42→15:53)
[2020-04-26] MEDS: POTASSIUM CHLORIDE 20 MEQ TABLET PO SCH (09:43)
[2020-04-26] MEDS: PANTOPRAZOLE 40 MG TABLET PO SCH ×2 (09:43→20:25)
[2020-04-26] MEDS: ASPIRIN 325 MG TABLET PO SCH (09:43)
[2020-04-26] MEDS: FUROSEMIDE 40 MG/4 ML VIAL IV SCH (09:43)
[2020-04-26] MEDS: gemfibroziL 600 MG TABLET PO SCH ×2 (09:44→20:25)
[2020-04-26] MEDS: CLOPIDOGREL 75 MG TABLET PO SCH (09:44)
[2020-04-26] MEDS: NON-FORMULARY MEDICATION (Pravastatin 80 MG) PO SCH (20:25)
[2020-04-26] MEDS: ASCORBIC ACID 500 MG TABLET NG SCH (20:27)
[2020-04-26] MEDS ORDERED: AMIODARONE 200 MG TABLET PO SCH (23:00)
[2020-04-27] MEDS: INSULIN LISPRO 100 UNIT/ML SUBCUT SCH ×5 (00:12→18:18)
[2020-04-27] MEDS: AMIODARONE 200 MG TABLET PO SCH ×3 (01:57→20:13)
[2020-04-27] MEDS ORDERED: AMIODARONE 200 MG TABLET PO SCH (02:00)
[2020-04-27 04:50] LABS: ABG Base Excess -3.8 MMOL/L (-2.5-2.5); ABG HCO3 21.2 MMOL/L (20-26); ABG Oxygen Saturation 99.4 % (95-100); ABG PH 7.287 (7.35-7.45); ABG TCO2 21.2 MMOL/L (23-27); Allen Test Positive; Pt O2 Delivery Device Ventilator
[2020-04-27 04:53] LABS: Basophils # 0.1 10*3/uL (0.0-0.2); Basophils % 0.5 % (0.0-0.8); Eosinophils # 0.2 10*3/uL (0.0-0.87); Hematocrit 25.7 VOL% (42.0-52.0); Hemoglobin 7.7 GM/DL (14.0-18.0); Immature Granulocytes % 1.1 %; Lymphocytes # 0.7 10*3/uL (1.4-4.0); Mean Corpuscular Volume 90.8 FL (87-102); Mean Platelet Volume 10.6 FL (9.6-12.0); Monocytes % 4.8 % (1.7-12.7); Neutrophils % 83.6 % (38.7-73.9); Platelet Count 227 T/CUMM (130-400); Red Blood Count 2.83 MC/CUMM (3.8-5.5); Red Cell Distribution Width 17.3 % (9.3-17.3); White Blood Count 9.2 T/CUMM (4-12)
[2020-04-27 05:13] LABS: Calcium 7.7 MG/DL (8.5-10.1); Osmolality,Calculated 290.3 MOS/KG (273-304)
[2020-04-27] MEDS: ENOXAPARIN 30 MG/0.3 ML SYRINGE SUBCUT SCH (05:28)
[2020-04-27] MEDS: POTASSIUM CHLORIDE 20 MEQ/15 ML UDCUP PER TUBE PRN (05:28)
[2020-04-27] MEDS ORDERED: FUROSEMIDE 20 MG/2 ML VIAL ONE (09:32)
[2020-04-27] MEDS: FUROSEMIDE 100 MG/10 ML VIAL IV SCH (10:20)
[2020-04-27] MEDS: PIPERACILLIN/TAZOBACTAM 3,375 MG in DEXTROSE 5% 100 ML IV SCH ×2 (10:22→20:13)
[2020-04-27] MEDS: INSULIN GLARGINE 100 UNIT/ML SUBCUT SCH (10:22)
[2020-04-27] MEDS: gemfibroziL 600 MG TABLET PO SCH ×2 (10:23→20:13)
[2020-04-27] MEDS: ASCORBIC ACID 500 MG TABLET NG SCH ×2 (10:23→20:13)
[2020-04-27] MEDS: POTASSIUM CHLORIDE 20 MEQ TABLET PO SCH (10:23)
[2020-04-27] MEDS: PANTOPRAZOLE 40 MG TABLET PO SCH ×2 (10:23→20:13)
[2020-04-27] MEDS: MULTIVITAMIN LIQUID (CENTRUM) 60 ML BOTTLE PO SCH (10:24)
[2020-04-27] MEDS: ASPIRIN CHEW 81 MG TABLET PO SCH (10:24)
[2020-04-27] MEDS: CLOPIDOGREL 75 MG TABLET PO SCH (10:24)
[2020-04-27] MEDS: MORPHINE 4 MG/1 ML VIAL IV PRN (13:55)
[2020-04-27] MEDS ORDERED: FUROSEMIDE 40 MG/4 ML VIAL ONE (14:06)
[2020-04-27] MEDS ORDERED: FUROSEMIDE 100 MG/10 ML VIAL IV ONE (14:08)
[2020-04-27] MEDS ORDERED: fentaNYL INJ 1,250 MCG in SODIUM CHLORIDE 0.9% 225 ML IV PRN (14:35)
[2020-04-27] MEDS: MIDAZOLAM 100 MG in SODIUM CHLORIDE 0.9% 80 ML IV PRN (14:57)
[2020-04-27] MEDS: NON-FORMULARY MEDICATION (Pravastatin 80 MG) PO SCH (20:13)
[2020-04-28] MEDS: INSULIN LISPRO 100 UNIT/ML SUBCUT SCH ×5 (00:12→23:46)
[2020-04-28 04:14] LABS: Basophils # 0.1 10*3/uL (0.0-0.2); Basophils % 0.6 % (0.0-0.8); Eosinophils # 0.3 10*3/uL (0.0-0.87); Eosinophils % 3.9 % (0.00-10.9); Hematocrit 26.5 VOL% (42.0-52.0); Hemoglobin 7.8 GM/DL (14.0-18.0); Immature Granulocytes Absolute 0.08 #; Lymphocytes # 0.8 10*3/uL (1.4-4.0); Lymphocytes % 9.8 % (21.2-54.2); Mean Corpuscular HGB Conc 29.4 GM/DL (32-36); Mean Corpuscular Volume 90.1 FL (87-102); Mean Platelet Volume 10.5 FL (9.6-12.0); Monocytes % 5.7 % (1.7-12.7); Platelet Count 233 T/CUMM (130-400); Red Blood Count 2.94 MC/CUMM (3.8-5.5); White Blood Count 8.4 T/CUMM (4-12)
[2020-04-28 04:34] LABS: Calcium 7.9 MG/DL (8.5-10.1); Osmolality,Calculated 293.3 MOS/KG (273-304)
[2020-04-28 04:41] LABS: ABG Base Excess -5.3 MMOL/L (-2.5-2.5); ABG HCO3 19.3 MMOL/L (20-26); ABG Oxygen Saturation 98.4 % (95-100); ABG PH 7.373 (7.35-7.45); ABG PO2 154.2 MM HG (80-95); ABG TCO2 20.4 MMOL/L (23-27); Allen Test Positive; Pt O2 Delivery Device Ventilator
[2020-04-28] MEDS: ENOXAPARIN 30 MG/0.3 ML SYRINGE SUBCUT SCH (05:40)
[2020-04-28] MEDS ORDERED: FUROSEMIDE 20 MG/2 ML VIAL ONE ×2 (08:18→08:38)
[2020-04-28] MEDS ORDERED: FUROSEMIDE 40 MG/4 ML VIAL ONE ×3 (08:19→17:03)
[2020-04-28] MEDS: FUROSEMIDE 100 MG/10 ML VIAL IV SCH ×3 (09:17→17:08)
[2020-04-28] MEDS: POTASSIUM CHLORIDE 20 MEQ TABLET PO SCH (09:19)
[2020-04-28] MEDS: INSULIN GLARGINE 100 UNIT/ML SUBCUT SCH (09:19)
[2020-04-28] MEDS: CLOPIDOGREL 75 MG TABLET PO SCH (09:20)
[2020-04-28] MEDS: MULTIVITAMIN LIQUID (CENTRUM) 60 ML BOTTLE PO SCH (09:20)
[2020-04-28] MEDS: ASCORBIC ACID 500 MG TABLET NG SCH ×2 (09:20→21:46)
[2020-04-28] MEDS: AMIODARONE 200 MG TABLET PO SCH ×2 (09:20→21:46)
[2020-04-28] MEDS: PANTOPRAZOLE 40 MG TABLET PO SCH ×2 (09:20→21:46)
[2020-04-28] MEDS: gemfibroziL 600 MG TABLET PO SCH ×2 (09:20→21:46)
[2020-04-28] MEDS: ASPIRIN CHEW 81 MG TABLET PO SCH (09:20)
[2020-04-28] MEDS: PIPERACILLIN/TAZOBACTAM 3,375 MG in DEXTROSE 5% 100 ML IV SCH ×2 (11:04→22:58)
[2020-04-28] MEDS: ACETAMINOPHEN 325 MG TABLET PO PRN (12:48)
[2020-04-28] MEDS ORDERED: FUROSEMIDE 100 MG/10 ML VIAL IV SCH (16:00)
[2020-04-28] MEDS: MIDAZOLAM 100 MG in SODIUM CHLORIDE 0.9% 80 ML IV PRN (17:14)
[2020-04-28] MEDS: NON-FORMULARY MEDICATION (Pravastatin 80 MG) PO SCH (21:48)
[2020-04-29 04:13] LABS: Basophils % 0.5 % (0.0-0.8); Eosinophils # 0.3 10*3/uL (0.0-0.87); Eosinophils % 3.1 % (0.00-10.9); Hematocrit 25.3 VOL% (42.0-52.0); Hemoglobin 7.5 GM/DL (14.0-18.0); Immature Granulocytes Absolute 0.08 #; Lymphocytes # 0.9 10*3/uL (1.4-4.0); Lymphocytes % 10.5 % (21.2-54.2); Mean Corpuscular HGB Conc 29.6 GM/DL (32-36); Mean Corpuscular Volume 91.7 FL (87-102); Monocytes % 7.8 % (1.7-12.7); Neutrophils % 77.1 % (38.7-73.9); Platelet Count 185 T/CUMM (130-400); Red Blood Count 2.76 MC/CUMM (3.8-5.5); Red Cell Distribution Width 18.6 % (9.3-17.3); White Blood Count 8.1 T/CUMM (4-12)
[2020-04-29 04:18] LABS: ABG Base Excess -6.7 MMOL/L (-2.5-2.5); ABG HCO3 18.8 MMOL/L (20-26); ABG Oxygen Saturation 96.3 % (95-100); ABG PCO2 38.6 MM HG (35-48); ABG PH 7.302 (7.35-7.45); ABG PO2 90.9 MM HG (80-95); Allen Test Positive; Pt O2 Delivery Device Ventilator
[2020-04-29 04:27] LABS: Calcium 7.6 MG/DL (8.5-10.1); Osmolality,Calculated 296.4 MOS/KG (273-304)
[2020-04-29] MEDS: ENOXAPARIN 30 MG/0.3 ML SYRINGE SUBCUT SCH (06:12)
[2020-04-29] MEDS: INSULIN LISPRO 100 UNIT/ML SUBCUT SCH ×3 (06:13→18:14)
[2020-04-29] MEDS ORDERED: FUROSEMIDE 40 MG/4 ML VIAL ONE (07:40)
[2020-04-29] MEDS: FUROSEMIDE 100 MG/10 ML VIAL IV SCH ×2 (07:58→16:08)
[2020-04-29] MEDS: PANTOPRAZOLE 40 MG TABLET PO SCH (09:19)
[2020-04-29] MEDS: POTASSIUM CHLORIDE 20 MEQ TABLET PO SCH (09:24)
[2020-04-29] MEDS: gemfibroziL 600 MG TABLET PO SCH ×2 (09:24→23:00)
[2020-04-29] MEDS: CLOPIDOGREL 75 MG TABLET PO SCH (09:24)
[2020-04-29] MEDS: AMIODARONE 200 MG TABLET PO SCH ×2 (09:24→22:59)
[2020-04-29] MEDS: ASCORBIC ACID 500 MG TABLET NG SCH ×2 (09:25→23:00)
[2020-04-29] MEDS: ASPIRIN CHEW 81 MG TABLET PO SCH (09:25)
[2020-04-29] MEDS: INSULIN GLARGINE 100 UNIT/ML SUBCUT SCH (09:26)
[2020-04-29] MEDS: MULTIVITAMIN LIQUID (CENTRUM) 60 ML BOTTLE PO SCH ×2 (09:28→09:46)
[2020-04-29] MEDS: PIPERACILLIN/TAZOBACTAM 3,375 MG in DEXTROSE 5% 100 ML IV SCH (09:28)
[2020-04-29] MEDS: PANTOPRAZOLE 40 MG VIAL IV SCH ×2 (09:30→23:28)
[2020-04-29] MEDS: NON-FORMULARY MEDICATION (Pravastatin 80 MG) PO SCH (23:00)
[2020-04-29] MEDS: PIPERACILLIN/TAZOBACTAM 3,375 MG in SODIUM CHLORIDE 0.9% 100 ML IV SCH (23:24)
[2020-04-30] MEDS: INSULIN LISPRO 100 UNIT/ML SUBCUT SCH ×4 (01:05→18:45)
[2020-04-30 03:51] LABS: Allen Test Positive; Pt O2 Delivery Device Ventilator
[2020-04-30 03:54] LABS: ABG HCO3 17.1 MMOL/L (20-26); ABG Oxygen Saturation 98.1 % (95-100); ABG PCO2 38.8 MM HG (35-48); ABG TCO2 16.6 MMOL/L (23-27)
[2020-04-30] MEDS: MIDAZOLAM 100 MG in SODIUM CHLORIDE 0.9% 80 ML IV PRN (04:46)
[2020-04-30 06:00] LABS: Basophils % 0.4 % (0.0-0.8); Eosinophils # 0.1 10*3/uL (0.0-0.87); Eosinophils % 1.7 % (0.00-10.9); Hematocrit 25.5 VOL% (42.0-52.0); Hemoglobin 7.7 GM/DL (14.0-18.0); Immature Granulocytes % 1.5 %; Immature Granulocytes Absolute 0.12 #; Lymphocytes # 0.6 10*3/uL (1.4-4.0); Lymphocytes % 7.4 % (21.2-54.2); Mean Corpuscular HGB Conc 30.2 GM/DL (32-36); Mean Corpuscular Volume 90.4 FL (87-102); Mean Platelet Volume 11.1 FL (9.6-12.0); Monocytes % 6.9 % (1.7-12.7); Neutrophils % 82.1 % (38.7-73.9); Platelet Count 195 T/CUMM (130-400); Red Blood Count 2.82 MC/CUMM (3.8-5.5); Red Cell Distribution Width 18.8 % (9.3-17.3); White Blood Count 8.2 T/CUMM (4-12)
[2020-04-30 06:14] LABS: Calcium 7.8 MG/DL (8.5-10.1); Osmolality,Calculated 303.3 MOS/KG (273-304)
[2020-04-30] MEDS: ENOXAPARIN 30 MG/0.3 ML SYRINGE SUBCUT SCH (06:46)
[2020-04-30] MEDS ORDERED: SODIUM BICARBONATE 650 MG TABLET PER TUBE SCH (09:00)
[2020-04-30] MEDS: FUROSEMIDE 100 MG/10 ML VIAL IV SCH ×2 (09:15→15:54)
[2020-04-30] MEDS: SODIUM BICARBONATE 650 MG TABLET PER TUBE SCH ×3 (09:21→21:30)
[2020-04-30] MEDS: AMIODARONE 200 MG TABLET PO SCH ×2 (09:21→21:30)
[2020-04-30] MEDS: CLOPIDOGREL 75 MG TABLET PO SCH (09:21)
[2020-04-30] MEDS: ASCORBIC ACID 500 MG TABLET NG SCH ×2 (09:22→21:30)
[2020-04-30] MEDS: INSULIN GLARGINE 100 UNIT/ML SUBCUT SCH (09:22)
[2020-04-30] MEDS: gemfibroziL 600 MG TABLET PO SCH ×2 (09:22→21:30)
[2020-04-30] MEDS: ASPIRIN CHEW 81 MG TABLET PO SCH (09:22)
[2020-04-30] MEDS: MULTIVITAMIN LIQUID (CENTRUM) 60 ML BOTTLE PO SCH (09:23)
[2020-04-30] MEDS: PANTOPRAZOLE 40 MG VIAL IV SCH ×2 (09:23→22:10)
[2020-04-30] MEDS: POTASSIUM CHLORIDE 20 MEQ TABLET PO SCH (09:23)
[2020-04-30] MEDS: PIPERACILLIN/TAZOBACTAM 3,375 MG in SODIUM CHLORIDE 0.9% 100 ML IV SCH ×2 (09:26→21:30)
[2020-04-30] MEDS: METOPROLOL TARTRATE 25 MG TABLET PO SCH ×2 (09:41→21:30)
[2020-04-30] MEDS ORDERED: HEPARIN 5,000 UNIT/1 ML VIAL ONE (12:18)
[2020-04-30] MEDS ORDERED: BUPIVACAINE 0.25% /EPI 10 ML VIAL ONE (12:18)
[2020-04-30] MEDS ORDERED: LIDOCAINE 1%/EPI INJ 20 ML VIAL ONE (12:18)
[2020-04-30] MEDS: NON-FORMULARY MEDICATION (Pravastatin 80 MG) PO SCH (21:30)
[2020-05-01] MEDS: INSULIN LISPRO 100 UNIT/ML SUBCUT SCH ×4 (01:06→17:48)
[2020-05-01] MEDS: SODIUM BICARBONATE 650 MG TABLET PER TUBE SCH ×3 (02:28→20:38)
[2020-05-01 03:24] LABS: ABG HCO3 18.7 MMOL/L (20-26); ABG Oxygen Saturation 99.9 % (95-100); ABG PCO2 40.6 MM HG (35-48); ABG PH 7.283 (7.35-7.45); ABG TCO2 18.4 MMOL/L (23-27)
[2020-05-01 04:33] LABS: Basophils % 0.6 % (0.0-0.8); Eosinophils # 0.2 10*3/uL (0.0-0.87); Eosinophils % 2.3 % (0.00-10.9); Hematocrit 22.1 VOL% (42.0-52.0); Hemoglobin 6.8 GM/DL (14.0-18.0); Immature Granulocytes % 1.2 %; Immature Granulocytes Absolute 0.08 #; Lymphocytes # 0.6 10*3/uL (1.4-4.0); Lymphocytes % 8.7 % (21.2-54.2); Mean Corpuscular HGB Conc 30.8 GM/DL (32-36); Mean Corpuscular Volume 88.4 FL (87-102); Mean Platelet Volume 11.6 FL (9.6-12.0); Monocytes % 6.7 % (1.7-12.7); Neutrophils % 80.5 % (38.7-73.9); Platelet Count 192 T/CUMM (130-400); White Blood Count 6.4 T/CUMM (4-12)
[2020-05-01 04:54] LABS: Calcium 7.7 MG/DL (8.5-10.1)
[2020-05-01] MEDS: ENOXAPARIN 30 MG/0.3 ML SYRINGE SUBCUT SCH (05:08)
[2020-05-01] MEDS: AMIODARONE 200 MG TABLET PO SCH ×2 (09:23→20:38)
[2020-05-01] MEDS: ASPIRIN CHEW 81 MG TABLET PO SCH (09:23)
[2020-05-01] MEDS: CLOPIDOGREL 75 MG TABLET PO SCH (09:24)
[2020-05-01] MEDS: gemfibroziL 600 MG TABLET PO SCH ×2 (09:24→20:38)
[2020-05-01] MEDS: PANTOPRAZOLE 40 MG VIAL IV SCH ×2 (09:27→20:36)
[2020-05-01 09:28] LABS: Hepatitis B Core IgM Quant 0.19 Index; Hepatitis B Surface Ag Quant < 0.10 Index; Hepatitis B Surface Ag Result Negative (Negative); Hepatitis C Virus Ab Quant 0.05 Index; Hepatitis C Virus Ab Result Negative (Negative)
[2020-05-01] MEDS: PIPERACILLIN/TAZOBACTAM 3,375 MG in SODIUM CHLORIDE 0.9% 100 ML IV SCH ×2 (09:28→20:39)
[2020-05-01] MEDS: ASCORBIC ACID 500 MG TABLET NG SCH ×2 (09:30→20:38)
[2020-05-01] MEDS: INSULIN GLARGINE 100 UNIT/ML SUBCUT SCH (09:31)
[2020-05-01] MEDS: POTASSIUM CHLORIDE 20 MEQ TABLET PO SCH (09:39)
[2020-05-01] MEDS: METOPROLOL TARTRATE 25 MG TABLET PO SCH ×2 (09:40→20:38)
[2020-05-01] MEDS ORDERED: AMIODARONE 450 MG/9 ML VIAL IV ONE (09:50)
[2020-05-01] MEDS ORDERED: AMIODARONE INJ 450 MG in DEXTROSE 5% 241 ML IV SCH (10:00)
[2020-05-01] MEDS: FUROSEMIDE 100 MG/10 ML VIAL IV SCH (10:31)
[2020-05-01] MEDS ORDERED: ALBUMIN 25% 25 GM in PREMIX 1 EACH IV PRN (11:34)
[2020-05-01] MEDS ORDERED: HEPARIN 10,000 UNIT/10 ML VIAL IV SCH (11:45)
[2020-05-01] MEDS: MULTIVITAMIN LIQUID (CENTRUM) 60 ML BOTTLE PO SCH (12:34)
[2020-05-01] MEDS: FUROSEMIDE INJ 200 MG in SODIUM CHLORIDE 0.9% 50 ML IV SCH (15:57)
[2020-05-01] MEDS: AMIODARONE INJ 450 MG in DEXTROSE 5% 241 ML IV SCH (17:43)
[2020-05-01] MEDS: NON-FORMULARY MEDICATION (Pravastatin 80 MG) PO SCH (20:38)
[2020-05-02] MEDS: INSULIN LISPRO 100 UNIT/ML SUBCUT SCH ×5 (01:12→23:46)
[2020-05-02 05:00] LABS: ABG Base Excess -7.5 MMOL/L (-2.5-2.5); ABG HCO3 18.3 MMOL/L (20-26); ABG Oxygen Saturation 93.5 % (95-100); ABG PH 7.273 (7.35-7.45); ABG PO2 79.9 MM HG (80-95); ABG TCO2 17.7 MMOL/L (23-27); Allen Test Positive; Pt O2 Delivery Device Ventilator
[2020-05-02] MEDS: ACETAMINOPHEN 325 MG TABLET PO PRN ×2 (05:38→15:43)
[2020-05-02] MEDS: ENOXAPARIN 30 MG/0.3 ML SYRINGE SUBCUT SCH (05:52)
[2020-05-02 06:03] LABS: Eosinophils % 0.1 % (0.00-10.9); Mean Corpuscular HGB Conc 30.9 GM/DL (32-36)
[2020-05-02 06:07] LABS: Osmolality,Calculated 306.4 MOS/KG (273-304)
[2020-05-02 06:33] LABS: Basophils # 0.1 10*3/uL (0.0-0.2); Hematocrit 30.4 VOL% (42.0-52.0); Immature Granulocytes % 1.3 %; Immature Granulocytes Absolute 0.09 #; Lymphocytes # 0.4 10*3/uL (1.4-4.0); Lymphocytes % 5.8 % (21.2-54.2); Mean Corpuscular Volume 87.4 FL (87-102); Mean Platelet Volume 11.7 FL (9.6-12.0); Monocytes % 6.1 % (1.7-12.7); NRBC # 0.05 10*3/uL; Neutrophils % 85.7 % (38.7-73.9); Platelet Count 168 T/CUMM (130-400); Red Cell Distribution Width 18.5 % (9.3-17.3); White Blood Count 6.8 T/CUMM (4-12)
[2020-05-02 06:36] LABS: Red Blood Count 3.48 MC/CUMM (3.8-5.5)
[2020-05-02 06:37] LABS: Hemoglobin 9.4 GM/DL (14.0-18.0)
[2020-05-02 06:44] LABS: Hypochromasia 1+; Microcytosis Slight
[2020-05-02] MEDS: ASCORBIC ACID 500 MG TABLET NG SCH ×2 (08:21→20:42)
[2020-05-02] MEDS: AMIODARONE 200 MG TABLET PO SCH ×2 (08:22→20:41)
[2020-05-02] MEDS: gemfibroziL 600 MG TABLET PO SCH ×2 (08:22→20:41)
[2020-05-02] MEDS: ASPIRIN CHEW 81 MG TABLET PO SCH (08:22)
[2020-05-02] MEDS: CLOPIDOGREL 75 MG TABLET PO SCH (08:22)
[2020-05-02] MEDS: MULTIVITAMIN LIQUID (CENTRUM) 60 ML BOTTLE PO SCH (08:22)
[2020-05-02] MEDS: INSULIN GLARGINE 100 UNIT/ML SUBCUT SCH (08:23)
[2020-05-02] MEDS: POTASSIUM CHLORIDE 20 MEQ TABLET PO SCH (08:23)
[2020-05-02] MEDS: PANTOPRAZOLE 40 MG VIAL IV SCH ×2 (08:24→20:35)
[2020-05-02] MEDS: SODIUM BICARBONATE 650 MG TABLET PER TUBE SCH ×2 (08:24→20:42)
[2020-05-02] MEDS: FUROSEMIDE INJ 200 MG in SODIUM CHLORIDE 0.9% 50 ML IV SCH ×2 (08:27→15:42)
[2020-05-02] MEDS: PIPERACILLIN/TAZOBACTAM 3,375 MG in SODIUM CHLORIDE 0.9% 100 ML IV SCH ×2 (08:28→20:42)
[2020-05-02] MEDS: AMIODARONE INJ 450 MG in DEXTROSE 5% 241 ML IV SCH (09:04)
[2020-05-02] MEDS: FLUCONAZOLE INJ 200 MG in PREMIX 1 EACH IV SCH (12:27)
[2020-05-02] MEDS: LINEZOLID INJ 600 MG in PREMIX 1 EACH IV SCH (12:28)
[2020-05-02] MEDS: METOPROLOL TARTRATE 25 MG TABLET PO SCH ×2 (13:41→20:41)
[2020-05-02] MEDS: NON-FORMULARY MEDICATION (Pravastatin 80 MG) PO SCH (20:41)
[2020-05-03] MEDS: AMIODARONE INJ 450 MG in DEXTROSE 5% 241 ML IV SCH (00:16)
[2020-05-03] MEDS: LINEZOLID INJ 600 MG in PREMIX 1 EACH IV SCH ×3 (00:17→23:55)
[2020-05-03 04:50] LABS: Allen Test Positive; Pt O2 Delivery Device Ventilator
[2020-05-03 04:51] LABS: ABG Base Excess -6.6 MMOL/L (-2.5-2.5); ABG HCO3 18.9 MMOL/L (20-26); ABG Oxygen Saturation 89.5 % (95-100); ABG PCO2 49.3 MM HG (35-48); ABG PH 7.235 (7.35-7.45); ABG PO2 69.4 MM HG (80-95); ABG TCO2 19.7 MMOL/L (23-27)
[2020-05-03 05:14] LABS: Basophils # 0.1 10*3/uL (0.0-0.2); Basophils % 0.7 % (0.0-0.8); Eosinophils # 0.1 10*3/uL (0.0-0.87); Eosinophils % 0.7 % (0.00-10.9); Hematocrit 29.1 VOL% (42.0-52.0); Hemoglobin 8.7 GM/DL (14.0-18.0); Immature Granulocytes % 1.5 %; Immature Granulocytes Absolute 0.13 #; Lymphocytes # 0.7 10*3/uL (1.4-4.0); Lymphocytes % 7.9 % (21.2-54.2); Mean Corpuscular HGB Conc 29.9 GM/DL (32-36); Mean Corpuscular Volume 89.8 FL (87-102); Mean Platelet Volume 10.9 FL (9.6-12.0); Neutrophils % 83.2 % (38.7-73.9); Platelet Count 168 T/CUMM (130-400); Red Blood Count 3.24 MC/CUMM (3.8-5.5); Red Cell Distribution Width 18.2 % (9.3-17.3); White Blood Count 8.5 T/CUMM (4-12)
[2020-05-03 05:25] LABS: Calcium 7.8 MG/DL (8.5-10.1); Osmolality,Calculated 297.7 MOS/KG (273-304)
[2020-05-03] MEDS: INSULIN LISPRO 100 UNIT/ML SUBCUT SCH ×3 (06:35→18:00)
[2020-05-03] MEDS: ENOXAPARIN 30 MG/0.3 ML SYRINGE SUBCUT SCH (06:37)
[2020-05-03] MEDS: FUROSEMIDE INJ 200 MG in SODIUM CHLORIDE 0.9% 50 ML IV SCH ×2 (07:45→15:30)
[2020-05-03] MEDS: PIPERACILLIN/TAZOBACTAM 3,375 MG in SODIUM CHLORIDE 0.9% 100 ML IV SCH ×2 (08:45→20:10)
[2020-05-03] MEDS: PANTOPRAZOLE 40 MG VIAL IV SCH ×2 (08:45→20:14)
[2020-05-03] MEDS: INSULIN GLARGINE 100 UNIT/ML SUBCUT SCH (08:45)
[2020-05-03] MEDS: POTASSIUM CHLORIDE 20 MEQ/15 ML UDCUP NG SCH (08:50)
[2020-05-03] MEDS: ASPIRIN CHEW 81 MG TABLET PO SCH (08:50)
[2020-05-03] MEDS: METOPROLOL TARTRATE 25 MG TABLET PO SCH ×2 (08:50→20:09)
[2020-05-03] MEDS: gemfibroziL 600 MG TABLET PO SCH ×2 (08:50→20:09)
[2020-05-03] MEDS: MULTIVITAMIN LIQUID (CENTRUM) 60 ML BOTTLE PO SCH (08:50)
[2020-05-03] MEDS: ASCORBIC ACID 500 MG TABLET NG SCH ×2 (08:50→20:09)
[2020-05-03] MEDS: CLOPIDOGREL 75 MG TABLET PO SCH (08:50)
[2020-05-03] MEDS: SODIUM BICARBONATE 650 MG TABLET PER TUBE SCH ×2 (08:50→20:08)
[2020-05-03] MEDS: AMIODARONE 200 MG TABLET PO SCH ×2 (08:50→20:09)
[2020-05-03] MEDS ORDERED: DIGOXIN 0.5 MG/2 ML AMP IV ONE (09:29)
[2020-05-03] MEDS ORDERED: SODIUM CHLORIDE 0.9% IV PRN (10:13)
[2020-05-03] MEDS ORDERED: PHENYLEPHRINE IV PRN (10:13)
[2020-05-03] MEDS ORDERED: PHENYLEPHRINE INJ 160 MG in SODIUM CHLORIDE 0.9% 234 ML IV PRN (10:30)
[2020-05-03] MEDS: MORPHINE 4 MG/1 ML VIAL IV PRN (11:35)
[2020-05-03] MEDS: FLUCONAZOLE INJ 200 MG in PREMIX 1 EACH IV SCH (12:15)
[2020-05-03] MEDS: NON-FORMULARY MEDICATION (Pravastatin 80 MG) PO SCH (20:48)
[2020-05-03] MEDS: ACETAMINOPHEN 325 MG TABLET PO PRN (22:56)
[2020-05-04] MEDS: INSULIN LISPRO 100 UNIT/ML SUBCUT SCH ×3 (00:01→12:00)
[2020-05-04 03:20] LABS: Allen Test Positive; Pt O2 Delivery Device Ventilator
[2020-05-04 03:21] LABS: ABG Base Excess -11.2 MMOL/L (-2.5-2.5); ABG HCO3 15.3 MMOL/L (20-26); ABG PCO2 44.7 MM HG (35-48); ABG PO2 65.1 MM HG (80-95)
[2020-05-04 03:24] LABS: ABG PH 7.179 (7.35-7.45)
[2020-05-04] MEDS ORDERED: SODIUM BICARBONATE 50 MEQ/50 ML VIAL IV ONE ×2 (03:28→06:14)
[2020-05-04 04:27] LABS: Basophils % 0.3 % (0.0-0.8); Eosinophils % 0.1 % (0.00-10.9); Hematocrit 29.2 VOL% (42.0-52.0); Hemoglobin 8.6 GM/DL (14.0-18.0); Immature Granulocytes % 2.6 %; Immature Granulocytes Absolute 0.27 #; Lymphocytes # 0.8 10*3/uL (1.4-4.0); Lymphocytes % 7.7 % (21.2-54.2); Mean Corpuscular HGB Conc 29.5 GM/DL (32-36); Mean Corpuscular Volume 91.3 FL (87-102); Mean Platelet Volume 11.6 FL (9.6-12.0); Monocytes % 5.2 % (1.7-12.7); NRBC # 0.06 10*3/uL; Neutrophils % 84.1 % (38.7-73.9); Platelet Count 166 T/CUMM (130-400); Red Cell Distribution Width 18.5 % (9.3-17.3); White Blood Count 10.3 T/CUMM (4-12)
[2020-05-04] MEDS: ACETAMINOPHEN 325 MG TABLET PO PRN ×2 (04:40→08:44)
[2020-05-04 04:44] LABS: Calcium 7.4 MG/DL (8.5-10.1); Osmolality,Calculated 304.7 MOS/KG (273-304)
[2020-05-04 04:48] LABS: Band Neutrophils 1 % (0-10); Eosinophils 1 % (0-10); Hypochromasia 1+; Lymphocytes 7 % (20-55); Platelet Estimate Adequate; Segmented Neutrophils 85 % (50-85); Total Cells Counted 100
[2020-05-04 06:11] LABS: Allen Test Positive; Pt O2 Delivery Device Ventilator
[2020-05-04 06:12] LABS: ABG Base Excess -10.2 MMOL/L (-2.5-2.5); ABG HCO3 17.4 MMOL/L (20-26); ABG PCO2 46.2 MM HG (35-48); ABG TCO2 18.8 MMOL/L (23-27)
[2020-05-04 06:14] LABS: ABG PH 7.194 (7.35-7.45)
[2020-05-04] MEDS: ENOXAPARIN 30 MG/0.3 ML SYRINGE SUBCUT SCH (06:33)
[2020-05-04] MEDS ORDERED: SODIUM HYPOCHLORITE 0.25% IRRIG 473 ML BOTTLE TOP SCH (07:30)
[2020-05-04 07:56] LABS: ABG Base Excess -9.5 MMOL/L (-2.5-2.5); ABG HCO3 16.6 MMOL/L (20-26); ABG Oxygen Saturation 78.2 % (95-100); ABG PCO2 47.1 MM HG (35-48); ABG PO2 53.7 MM HG (80-95); ABG TCO2 17.4 MMOL/L (23-27)
[2020-05-04 07:58] LABS: ABG PH 7.199 (7.35-7.45)
[2020-05-04] MEDS: FUROSEMIDE INJ 200 MG in SODIUM CHLORIDE 0.9% 50 ML IV SCH ×2 (08:38→16:00)
[2020-05-04] MEDS: MULTIVITAMIN LIQUID (CENTRUM) 60 ML BOTTLE PO SCH (08:43)
[2020-05-04] MEDS: ASCORBIC ACID 500 MG TABLET NG SCH (08:44)
[2020-05-04] MEDS: gemfibroziL 600 MG TABLET PO SCH (08:45)
[2020-05-04] MEDS: CLOPIDOGREL 75 MG TABLET PO SCH (08:45)
[2020-05-04] MEDS: AMIODARONE 200 MG TABLET PO SCH (08:45)
[2020-05-04] MEDS: SODIUM BICARBONATE 650 MG TABLET PER TUBE SCH (08:45)
[2020-05-04] MEDS: ASPIRIN CHEW 81 MG TABLET PO SCH (08:45)
[2020-05-04] MEDS: METOPROLOL TARTRATE 25 MG TABLET PO SCH (08:45)
[2020-05-04] MEDS: PIPERACILLIN/TAZOBACTAM 3,375 MG in SODIUM CHLORIDE 0.9% 100 ML IV SCH (08:56)
[2020-05-04] MEDS: INSULIN GLARGINE 100 UNIT/ML SUBCUT SCH (08:56)
[2020-05-04] MEDS: POTASSIUM CHLORIDE 20 MEQ/15 ML UDCUP NG SCH (09:00)
[2020-05-04] MEDS ORDERED: DIGOXIN 0.5 MG/2 ML AMP IV SCH (09:00)
[2020-05-04] MEDS: PANTOPRAZOLE 40 MG VIAL IV SCH (09:06)
[2020-05-04] MEDS: MENTHOL/ZINC OXIDE OINT 71 GM JAR TOP SCH ×2 (11:40)
[2020-05-04] MEDS: LINEZOLID INJ 600 MG in PREMIX 1 EACH IV SCH (12:00)
[2020-05-04 12:12] LABS: Allen Test Positive; Pt O2 Delivery Device Ventilator
[2020-05-04 12:13] LABS: ABG Base Excess -12.7 MMOL/L (-2.5-2.5); ABG HCO3 16.3 MMOL/L (20-26); ABG Oxygen Saturation 89.5 % (95-100); ABG PCO2 52.1 MM HG (35-48); ABG PO2 77.8 MM HG (80-95); ABG TCO2 17.9 MMOL/L (23-27)
[2020-05-04 12:14] LABS: ABG PH 7.113 (7.35-7.45)
[2020-05-04 12:34] VITALS: BP 0/0
[2020-05-04] MEDS: FLUCONAZOLE INJ 200 MG in PREMIX 1 EACH IV SCH (13:00)
== END 2020-05-04 12:20 | disposition expired | DRG 853 ==
LOC: N.2E 04-13 01:00 → SUATTDRO 04-13 01:00 → N.ICU 04-13 09:00 → N.2E 04-24 14:39 → N.3E 04-24 14:40 → N.ICU 04-26 01:00
PROVIDERS: ADMIT Internal Medicine; ATTEND Internal Medicine